=== PATIENT | male | born 1985 | race Caucasian/White ===

== ENCOUNTER 2017-12-05 15:57 | Observation (INO) | payer BC ==
[2017-12-05] VITALS (7 sets, daily range): BP systolic 119–179; BP diastolic 65–114; BMI 44.6
[~2017-12-05] VITALS: Ht 180.3 cm; Wt 144.2 kg
--- NOTE | ~2017-12-05 | HEMODYNAMI ---
PATIENT:MICHI QUINN MEDICAL RECORD: [id number] : 83 [facility] AD[facility]ION DATE: 12/05/17 Generatedon:12/06/201711:07 Patient name: MICHI QUINN Patient #: [id number] SSN: : 1985 Date of study: 12/06/2017 Page: Of Hemodynamic Procedure Report Patient Data Patient Demographics Procedure consent was obtained First Name: MICHI Gender: Male Last Name: KAI : 1985 Patient #: [id number] Age: 32 year(s) Race: Unknown Additional ID: [id number] Contact details Address: [address] [place] [address] [address] State: [place] City: [place] Zip code: [address] Admission Admission Data Admission Date: 12/05/2017 Admission Time: 18:04 Room #: D.2119 Procedure Procedure Types Cath Procedure Diagnostic Procedure LHC LHC w/Coronaries Procedure Description Procedure Date Procedure Date: 12/06/2017 Procedure Start Time: 10:50 Procedure End Time: 11:04 Procedure Staff Name Function Glen Hernandez MD Performing Physician Mehran Adame RN Nurse Jarek Juarez RT Monitor Shadi Healy RT Scrub Procedure Data Cath Procedure Fluoroscopy Diagnostic fluoroscopy Total fluoroscopy Time: 6.1 time: 6.1 min min Diagnostic fluoroscopy Total fluoroscopy dose: 448 dose: 448 mGy mGy Contrast Material Contrast Material Type Amount (ml) Isovue 300 80 Entry Location Entry Primary Successful Side Size Upsize Upsize Entry Closure Ledbetter ccessful Closure Location (Fr) 1 (Fr) 2 (Fr) Remarks Device Remarks Radial Right 6 Fr Mechanical artery Short Compression Estimated blood loss: 10 ml Diagnostic catheters Device Type Used For End Catheter Placement DIAGNOSTIC [place] 110cm 5 Procedure Fr catheter ([id number]) Procedure Complications No complications Procedure Medications Medication Administration Route Dosage Oxygen etCO2 Nasal cannula 2 l/min Heparin Flush Bag added to field 2 bags (1000units/500ml NS) 0.9% NaCl I.V. 100 ml/hr Radial Cocktail added to field 1 syringe (Verapomil 2mg/Nitro 400mcg/Heparin 1500units) Fentanyl I.V. 50 mcg Versed I.V. 1 mg Fentanyl I.V. 50 mcg Versed I.V. 1 mg Fentanyl I.V. 50 mcg Versed I.V. 1 mg Radial Cocktail I.A. 1 syringe (Verapomil 2mg/Nitro 400mcg/Heparin 1500units) Fentanyl I.V. 50 mcg Versed I.V. 1 mg Fentanyl I.V. 50 mcg Fentanyl I.V. 50 mcg Hemodynamics Rest Heart Rate: 57 (bpm) Pressure Samples Time Site Value (mmHg) Purpose Heart Use Rate(bpm) 10:53 LV 132/-2,18 EDP 74 10:53 AO 106/83(95) Pullback 61 Gradients Valve Time Site Site 2 Mean SEP/DFP Peak To Heart Use 1 (mmHg) (sec/min) Peak Rate (mmHg) (bpm) Aortic 10:53 LV AO 61 106/83(95) Snapshots Pre Cath Intra NCS Post Cath Vital Signs Time Heart Resp SPO2 etCO2 NIBP (mmHg) Rhythm Pain Sedation Rate (ipm) (%) (mmHg) Status Level (bpm) 10:32:47 60 17 98 0 150/88(102) NSR 0 (11) 10(A) , No pain 10:37:22 59 16 100 42.9 149/79(109) NSR 0 (11) 10(A) , No pain 10:41:52 57 17 95 42.1 144/84(106) NSR 0 (11) 10(A) , No pain 10:46:27 56 16 93 43.7 134/76(110) NSR 0 (11) 10(A) , No pain 10:52:13 62 17 95 45.9 143/74(96) NSR 0 (11) 10(A) , No pain 10:56:55 61 17 94 0 129/64(101) NSR 0 (11) 10(A) , No pain 11:01:26 67 17 94 0 139/76(97) NSR 0 (11) 10(A) , No pain 11:06:27 61 17 96 0 111/76(83) NSR 0 (11) 10(A) , No pain Medications Time Medication Route Dose Verified Delivered Reason Notes Effectiveness by by 10:35:26 Oxygen etCO2 2 l/min Glen Mehran Per Nasal Mary Adame RN physician cannula 10:35:35 Heparin Flush added 2 bags Glen Mehran used for Bag to Mary Adame RN procedure (1000units/500ml field ZIEGLER NS) 10:35:44 0.9% NaCl I.V. 100 Glen Mehran Per ml/hr Mary Adame RN physician 10:35:52 Radial Cocktail added 1 Glen Mehran used for (Verapomil to syringe Mary Adame RN procedure 2mg/Nitro field ZIEGLER 400mcg/Heparin 1500units) 10:43:50 Fentanyl I.V. 50 mcg Glen Mehran for sedation Mary Adame RN, MD 10:44:03 Versed I.V. 1 mg Glen Mehran for sedation Mary Adame RN, MD 10:46:37 Fentanyl I.V. 50 mcg Glen Mehran for sedation Mary Adame RN, MD 10:46:40 Versed I.V. 1 mg Glen Mehran for sedation Mary Adame RN, MD 10:48:39 Fentanyl I.V. 50 mcg Glen Mehran for sedation Mary Adame RN, MD 10:48:42 Versed I.V. 1 mg Glen Mehran for sedation Mary Adame RN, MD 10:51:26 Radial Cocktail I.A. 1 Glen Glen for (Verapomil syringe Mary Hernandez MD vasodilation 2mg/Nitro 400mcg/Heparin 1500units) 10:51:34 Fentanyl I.V. 50 mcg Glen Mehran for sedation Mary Adame RN, MD 10:51:38 Versed I.V. 1 mg Glen Mehran for sedation Mary Adame RN, MD 10:54:00 Fentanyl I.V. 50 mcg Glen Mehran for sedation Mary Adame RN, MD 10:57:42 Fentanyl I.V. 50 mcg Glen Mehran for sedation Mary Adame RN, MD Procedure Log Time Note 10:00:36 Jarek KYLE(R) sent for patient. Start room use. 10:08:37 Time tracking: Regular hours (M-F 7:00 - 5:00) 10:08:41 Plan of Care:Hemodynamics will remain stable., Cardiac rhythm will remain stable., Comfort level will be maintained., Respiratory function will remain adequate., Patient/ family verbilizes understanding of procedure., Procedure tolerated without complication., Recovers from procedure without complications.. 10:19:18 Patient received from PCU to CCL 3 Alert and oriented. Tansferred to table in Supine position. 10:19:19 Warm blankets applied, and pauly hugger turned on for patient comfort. 10:19:19 Correct patient and procedure confirmed by team. 10:19:20 Signed procedure consent form obtained from patient. 10:19:21 ECG and BP/O2 sat monitors applied to patient. 10:31:26 Vital chart was started 10:35:26 Oxygen 2 l/min etCO2 Nasal cannula was administered by Mehran Adame RN; Per physician; 10:35:35 Heparin Flush Bag (1000units/500ml NS) 2 bags added to field was administered by Mehran Adame RN; used for procedure; 10:35:44 0.9% NaCl 100 ml/hr I.V. was administered by Mehran Adame RN; Per physician; 10:35:52 Radial Cocktail (Verapomil 2mg/Nitro 400mcg/Heparin 1500units) 1 syringe added to field was administered by Mehran Adame RN; used for procedure; 10:38:05 Baseline sample Acquired. 10:38:09 Rhythm: sinus rhythm 10:38:11 Full Disclosure recording started 10:38:29 H&P Date Dictated: 12/05/2017 Within 30 days and on chart.. 10:38:31 Pre-procedure instructions explained to patient. 10:38:32 Pre-op teaching completed and patient verbalized understanding. 10:38:34 Family unavailable. 10:38:35 Patient NPO since Midnight. 10:38:36 Is the patient allergic to Iodine/contrast media? No. 10:38:38 Is patient on blood thinner?Yes 10:38:40 ACC The patient was administered the following blood thiners within the last 24 hours: ACCPlavix 10:38:42 Patient diabetic? No. 10:38:48 Previous problem with sedation/anesthesia? No ? 10:38:50 Snore? Yes 10:38:51 Sleep apnea? Yes 10:38:52 Deviated septum? No 10:38:52 Opens mouth fully? Yes 10:38:53 Sticks out tongue? Yes 10:38:54 Airway obstruction? No ? 10:38:56 Dentures? No ? 10:38:59 Pre procedure: right dorsailis pedis pulse 1+ Palpable, but thready & weak; easily obliterated 10:39:01 Modified Robert's test Ulnar < 7 seconds 10:39:03 Patient pain scale 0/10 ?. 10:39:53 IV patent on arrival in right hand with 0.9% NaCl at O. 10:39:55 Lab results completed and on chart. 10:40:02 Right Radial & Right Groin area was prepped with chlora-prep and draped in sterile fashion 10:40:03 Alarms reviewed by R. N. 10:40:03 Sharps counted by scrub and verified by R.N. 10:40:23 Use device set Radial Dx or PCI 10:40:38 Tegaderm 4 x 4 (1626W) opened to sterile field. 10:40:39 ACIST Manifold (48180) opened to sterile field. 10:40:39 ACIST Hand Control (03997) opened to sterile field. 10:40:41 ACIST Syringe (31492) opened to sterile field. 10:40:41 Medline Cath Pack ([id number]) opened to sterile field. 10:40:42 Bag Decanter (2002S) opened to sterile field. 10:42:25 --------ALL STOP TIME OUT------ 10:42:26 Final Timeout: patient, procedure, and site verified with staff and physician. All members of the team are in agreement. 10:42:40 Right Radial & Right Groin site verified by team. 10:42:43 Physical assessment completed. ASA score P 2 - A patient with mild systemic disease as per Glen Hernandez MD. 10:42:45 Sedation plan: IV Moderate Sedation Medication:Versed, Fentanyl 10:42:50 DIAGNOSTIC WIRE .035 260cm J wire (763290) opened to sterile field. 10:42:51 MBrace Wrist Support ([id number]) opened to sterile field. 10:42:54 SHEATH 6Fr Prelude Radial ([id number]) opened to sterile field. 10:43:02 IV Extension Set opened to sterile field. 10:43:50 Fentanyl 50 mcg I.V. was administered by Mehran Adame RN; for sedation; 10:44:03 Versed 1 mg I.V. was administered by Mehran Adame RN; for sedation; 10:46:37 Fentanyl 50 mcg I.V. was administered by Mehran Adame RN; for sedation; 10:46:40 Versed 1 mg I.V. was administered by Mehran Adame RN; for sedation; 10:48:39 Fentanyl 50 mcg I.V. was administered by Mehran Adame RN; for sedation; 10:48:42 Versed 1 mg I.V. was administered by Mehran Adame RN; for sedation; 10:49:02 Zero performed for pressure channel P1 10:49:05 Zero performed for pressure channel P1 10:49:08 Zero performed for pressure channel P1 10:49:11 Zero performed for pressure channel P1 10:49:13 Zero performed for pressure channel P1 10:49:16 Zero performed for pressure channel P1 10:49:25 Zero performed for pressure channel P1 10:49:29 Zero performed for pressure channel P1 10:49:38 Zero performed for pressure channel P1 10:50:16 Zero performed for pressure channel P1 10:50:24 Procedure started. 10:50:31 Local anesthetic to right radial artery with Lidocaine 2% by Glen Hernandez MD.INITIAL ACCESS ONLY 10:51:00 A 6 Fr Short sheath was inserted into the Right Radial artery 10:51:26 Radial Cocktail (Verapomil 2mg/Nitro 400mcg/Heparin 1500units) 1 syringe I.A. was administered by Glen Hernandez MD; for vasodilation; 10:51:32 A DIAGNOSTIC [place] 110cm 5 Fr catheter ([id number]) was advanced over the wire and used for Procedure. 10:51:34 Fentanyl 50 mcg I.V. was administered by Mehran Adame RN; for sedation; 10:51:38 Versed 1 mg I.V. was administered by Mehran Adame RN; for sedation; 10:53:38 LV angiography performed. 10:53:39 LV gram done using MADRID 10:54:00 Fentanyl 50 mcg I.V. was administered by Mehran Adame RN; for sedation; 10:54:07 EF : 60 % 10:54:09 LV hemodynamics recorded. 10:54:23 Injector settings: Ml/sec: 12, Volume: 8, 10:57:34 LCA angiography performed. 10:57:42 Fentanyl 50 mcg I.V. was administered by Mehran Adame RN; for sedation; 11:01:28 RCA angiography performed. 11:01:50 Catheter removed. 11:02:02 TR BAND Large ([id number]) opened to sterile field. 11:02:19 Sheath removed intact; hemostasis achieved with Mechanical Compression to the Right Radial artery. 11:02:21 Procedure ended.(Physican Out) 11:02:49 Fluoroscopy time 06.10 minutes. 11:03:02 Fluoroscopy dose: 448 mGy 11:03:02 Flurop Dose total: 448 11:03:08 Contrast amount:Isovue 300 80ml. 11:03:17 Sharps counted by scrub and verified by R.N. 11:03:20 TR band inflated with 10cc of air. 11:03:21 Insertion/operative site no bleeding no hematoma. 11:03:23 Post Procedure Pulses reassessed and unchanged 11:03:26 Post-procedure physical assessment completed. ASA score P 2 - A patient with mild systemic disease as per Glen Hernandez MD. 11:03:28 Post procedure rhythm: unchanged. 11:03:30 Estimated blood loss: 10 ml 11:03:31 Post procedure instruction explained to patient.Patient verbalizes understanding. 11:03:32 Patient needs reinforcement of post procedure teaching. 11:03:38 Procedure and supply charges have been captured, reviewed, submitted and are correct. 11:03:42 Procedure Complication : No complications 11:03:57 Vital chart was stopped 11:03:57 See physician's report for complete and final results. 11:03:59 Report given to PCU. 11:04:09 Patient transfered to PCU with Bed. 11:04:14 Procedure ended. 11:04:14 Full Disclosure recording stopped 11:07:09 End room use (Document Last) Device Usage Item Name Manufacture Quantity Catalog Number Hospital Part Current M inimal Lot# / Charge Number Stock Stock Serial# Code Tegaderm 4 x 4 3M 1 1626W [id number] 5 (1626W) ACIST Manifold Acist 1 90084 352824 660704 813505 5 (11883) [employer] ACIST Hand Acist 1 95927 495308 130454 845699 5 Control (85849) [employer] ACIST Syringe Acist 1 80830 700915 940690 145007 2 0 (33543) [employer] Medline Cath Cardinal 1 [id number] 739762 98446 343860 5 Pack Health ([id number]) Bag Decanter Microtek 1 2001S 201021 84528 243263 5 (2001S) Medical Inc. DIAGNOSTIC WIRE St Sanjay 1 245942 202760 900670 260357 3 0 .035 260cm J wire (083443) MBrace Wrist Advanced 1 140-0250-00 601297 18842 403587 5 Support Vascular ([id number]) Dynamics SHEATH 6Fr Merit 1 [id number] 135656 285563 222723 5 Prelude Radial Medical ([id number]) IV Extension Hospira 1 683550 16677 842291 5 Set DIAGNOSTIC Terumo 1 00-9449 394527 026970 331840 5 [place] 110cm 5 Fr catheter (486648) TR BAND Large Terumo 1 [id number] 647440 913366 484582 4 0 ([id number]) Signature Audit [place] Stage Time Signature Unsigned Intra-Procedure 12/06/2017 Jarek Juarez 11:07:26 AM RT(R) Signatures Monitor : Jarek Juarez RT Signature : Date : Time : [id number] [place] [address]
--- NOTE | ~2017-12-05 | EC ---
PATIENT:MICHI QUINN DATE OF SERVICE: 12/05/17 SEX: M MEDICAL RECORD: [id number] DATE OF : [birth year] LOCATION:D.M2 D.211 AGE OF PATIENT: 32 ADMISSION DATE: 12/05/17 REFERRING PHYSICIAN: INTERPRETING PHYSICIAN: RAFAEL CARCAMO MD ECHOCARDIOGRAM REPORT ECHO CHARGES 4 ECHO COMPLETE Date: 12/06 CLINICAL DIAGNOSIS: ACS ECHOCARDIOGRAPHIC MEASUREMENTS (adult normal given) AC root (d.<3.7cm) 3.9 cm LV Septum d (<1.2 cm> 1.8 cm Valve Excursion 2.7 cm LV Septum (systole) 2.3 cm Left Atria (s.<4.0cm> 4.2 cm LVPW d(<1.2cm) 1.7 cm RV (d.<2.3cm) 3.1 cm LVPW (sytole) 2.0 cm LV diastole(<5.6CM) 5.3 cm MV E-F(>70mm/sec) cm LV systole 3.6 cm LVOT Diameter 2.2 cm MV exc.(>10mm) cm Est.ejection fraction (50-75%) % DOPPLER: LVIT cm/sec A 39.0 cm/sec E 71.0 cm/sec LA cm/sec RVSP 26.0 mmHg LVOT 98.0 cm/sec AOP1/2T m/s Asc. 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 Carcamo TAPE# PACS Pericardial Effusion N DATE OF SERVICE: PROCEDURE: Transthoracic echocardiogram. FINDINGS: 1. Left ventricle shows moderate concentric left ventricular hypertrophy. Inflow characteristics are normal. Ejection fraction is 55% to 60%. 2. The mitral valve is grossly normal. 3. The left atrium is mildly dilated. 4. The aortic valve is normal. ECHOCARDIOGRAM REPORT [id number] MICHI QUINN 5. The tricuspid valve is normal. 6. The right ventricle is mildly dilated. 7. The right atrium is mildly dilated. 8. The pulmonic valve is normal. 9. The pericardium is normal. CONCLUSION: The patient has evidence of hypertensive heart disease, otherwise normal echocardiogram. No evidence of regional wall motion abnormalities. TRANSINT:[id number] Voice Confirmation ID: [id number] DOCUMENT ID: [id number] RAFAEL CARCAMO MD at 1147 CC: [id number] DICTATION DATE: 12/07/17813 JEWELRY SALES REPRESENTATIVE: 12/07/17823 DIS IN 12/06/17 [address] [id number] [place] [address]
[2017-12-05 16:44] LABS: BASOPHILS 0.2 % (0-2); EOSINOPHILS 2.6 % (0-7); HEMATOCRIT 44.3 % (42.0-54.0); HEMOGLOBIN 15.7 g/dL (13.5-17.5); IMMATURE GRANULOCYTES 0.4 % (0-5); LYMPHOCYTES 20.9 % (15-50); MCH 31.5 pg (26.0-34.0); MCHC 35.4 g/dL (31.0-37.0); MEAN PLATELET VOLUME 9.8 fL (7.4-10.4); MONOCYTES 5.9 % (2-11); PLATELET COUNT 220 10x3/uL (130-400); RBC 4.98 10x6/uL (4.20-6.10); RDW 12.6 % (11.5-14.5); WBC 11.1 10x3/uL (4.8-10.8)
[2017-12-05 17:27] LABS: ALBUMIN 3.5 g/dL (3.4-5.0); ALKALINE PHOSPHATASE 58 U/L (46-116); ALT (SGPT) 43 U/L (10-68); BILIRUBIN - TOTAL 0.44 mg/dL (0.2-1.3); CALC OSMOLALITY 285 mosm/kg (275-300); CHLORIDE - SERUM 105 mmol/L (98-107); CKMB 0.8 U/L (0.0-3.6); CREATINE KINASE 84 UL (21-232); GLUCOSE 143 mg/dL (74-106); POTASSIUM - SERUM 3.8 mmol/L (3.5-5.1); PRO BNP 10 pg/mL (0-125); PROTEIN - SERUM 7.5 g/dL (6.4-8.2); SODIUM 142 mmol/L (136-145); UREA NITROGEN 16 mg/dL (7-18); eGFR NON AFRICAN AMERICAN > 90 mL/min (90-120)
[2017-12-05 17:29] LABS: TROPONIN-I < 0.017 ng/mL (0.000-0.060)
[2017-12-05 23:15] LABS: CKMB 0.5 U/L (0.0-3.6); CREATINE KINASE 74 UL (21-232)
[2017-12-05 23:16] LABS: TROPONIN-I < 0.017 ng/mL (0.000-0.060)
[2017-12-06 00:30] VITALS: BP 123/69
[2017-12-06 04:30] VITALS: BP 124/78
[2017-12-06 05:28] LABS: CHOL - HDL RATIO 6.2 ratio (2.3-4.9); CHOLESTEROL, TOTAL 222 mg/dL (0-200); CKMB 0.5 U/L (0.0-3.6); CREATINE KINASE 66 UL (21-232); HDL CHOLESTEROL 36 mg/dL (32-96); LDL CHOLESTEROL 134 mg/dL (0-100); LDL-HDL RATIO 3.7 ratio (1.5-3.5); TRIGLYCERIDE 262 mg/dL (30-200); TROPONIN-I < 0.017 ng/mL (0.000-0.060)
[2017-12-06 07:40] VITALS: BP 99/66
[2017-12-06 10:48] VITALS: Ht 180.3 cm; Wt 144.2 kg
[2017-12-06] MEDS ORDERED: LOPRESSOR25 MG PO (11:33)
[2017-12-06] MEDS ORDERED: ASPIRIN81 MG PO (11:33)
[2017-12-06] MEDS ORDERED: LIPITOR20 MG PO (11:33)
[2017-12-06] MEDS ORDERED: LISINOPRIL5 MG PO (11:34)
== END 2017-12-06 16:49 | disposition home or self-care (01) ==
LOC: D.ER 15:57 → D.M2 18:04 → D.EDHOLD 18:04 → OBSVTIME 18:05 → D.M2 18:26
PROVIDERS: Emergency Medicine
DX: R07.89 Other chest pain (principal); I10 Essential (primary) hypertension; G47.33 Obstructive sleep apnea (adult) (pediatric); E78.00 Pure hypercholesterolemia, unspecified; E66.9 Obesity, unspecified; Q24.5 Malformation of coronary vessels

== ENCOUNTER → 2017-12-13 18:34 | Outpatient (CLI) | payer BC ==
[2017-12-06 10:48] VITALS: BMI 44.3
[~2017-12-13 18:34] MED LIST: ASPIRIN81 MG PO; LIPITOR20 MG PO; LISINOPRIL5 MG PO; LOPRESSOR25 MG PO
[2017-12-13 19:50] LABS: CHOL - HDL RATIO 5.5 ratio (2.3-4.9)
== END | disposition home or self-care (01) ==
LOC: D.LABREF 18:34
PROVIDERS: Internal Medicine Cardiovascular Disease
DX: I24.9 Acute ischemic heart disease, unspecified (principal)

== ENCOUNTER → 2018-04-04 10:28 | Outpatient (CLI) | payer BC ==
[2017-12-06 10:48] VITALS: BMI 44.3
[~2018-04-04 10:28] MED LIST changes: +VENTOLIN HFA18 GM INH
== END | disposition home or self-care (01) ==
LOC: D.RT 10:28
DX: J44.1 Chronic obstructive pulmonary disease with (acute) exacerbation (principal)

== ENCOUNTER 2018-04-05 19:34 | Emergency (ER) | payer BC ==
[~2018-04-05] VITALS: Ht 180.3 cm; Wt 145.5 kg
[~2018-04-05 19:34] MED LIST changes: -VENTOLIN HFA18 GM INH
[2018-04-05 19:38] VITALS: Ht 180.3 cm; Wt 145.5 kg
[2018-04-05 19:56] LABS: BASOPHILS 0.4 % (0-2); EOSINOPHILS 2.2 % (0-7); HEMATOCRIT 45.6 % (42.0-54.0); HEMOGLOBIN 16.7 g/dL (13.5-17.5); IMMATURE GRANULOCYTES 0.7 % (0-5); MCH 31.4 pg (26.0-34.0); MCHC 36.6 g/dL (31.0-37.0); MCV 85.7 fL (80.0-100.0); MEAN PLATELET VOLUME 9.9 fL (7.4-10.4); MONOCYTES 6.1 % (2-11); NEUTROPHILS 62.6 % (40-80); PLATELET COUNT 251 10x3/uL (130-400); RBC 5.32 10x6/uL (4.20-6.10); RDW 12.9 % (11.5-14.5); WBC 10.1 10x3/uL (4.8-10.8)
[2018-04-05 20:06] LABS: APTT 25.5 SECONDS (22.8-39.4); INR 0.95 (0.85-1.17); PROTIME 12.3 SECONDS (11.6-15.0)
[2018-04-05 20:07] LABS: D-DIMER-QUANTITATIVE < 0.27 ug/mLFEU (0.20-0.54)
[2018-04-05 20:17] LABS: ALBUMIN 3.3 g/dL (3.4-5.0); ALKALINE PHOSPHATASE 50 U/L (46-116); ALT (SGPT) 53 U/L (10-68); CALC OSMOLALITY 282 mosm/kg (275-300); CALCIUM 8.4 mg/dL (8.5-10.1); CARBON DIOXIDE 24.7 mmol/L (21.0-32.0); CHLORIDE - SERUM 105 mmol/L (98-107); CREATININE - SERUM 0.7 mg/dL (0.6-1.3); GLUCOSE 115 mg/dL (74-106); POTASSIUM - SERUM 4.2 mmol/L (3.5-5.1); PROTEIN - SERUM 6.6 g/dL (6.4-8.2); SODIUM 142 mmol/L (136-145); UREA NITROGEN 11 mg/dL (7-18); eGFR NON AFRICAN AMERICAN > 90 mL/min (90-120)
[2018-04-05 20:29] LABS: CREATINE KINASE 98 UL (21-232); PRO BNP 29 pg/mL (0-125)
[2018-04-05 20:38] LABS: TROPONIN-I < 0.017 ng/mL (0.000-0.060)
[2018-04-05] MEDS ORDERED: VENTOLIN HFA18 GM INH (20:44)
[2018-04-05 21:12] VITALS: BP 125/72
== END 2018-04-05 21:13 | disposition home or self-care (01) ==
LOC: D.ER 19:34
PROVIDERS: Family Medicine
DX: R06.00 Dyspnea, unspecified (principal); E66.9 Obesity, unspecified; R05 Cough; I10 Essential (primary) hypertension

== ENCOUNTER 2019-11-24 15:33 | Emergency (ER) | payer BC ==
[~2019-11-24] VITALS: Ht 210.8 cm; Wt 159.1 kg
[~2019-11-24 15:33] MED LIST changes: +VENTOLIN HFA18 GM INH
[2019-11-24 16:08] VITALS: Ht 210.8 cm; Wt 159.1 kg
[2019-11-24] MEDS ORDERED: SYMBICORT 16010.2 GM INH (16:11)
[2019-11-24] MEDS ORDERED: PREDNISONE50 MG PO (17:51)
[2019-11-24] MEDS ORDERED: INDOCIN25 MG PO (17:51)
[2019-11-24 18:20] VITALS: BP 166/114
== END 2019-11-24 18:21 | disposition home or self-care (01) ==
LOC: D.ER 15:33
DX: M10.9 Gout, unspecified (principal); I10 Essential (primary) hypertension; J44.9 Chronic obstructive pulmonary disease, unspecified; M79.672 Pain in left foot